=== PATIENT | male | born 1955 | race Caucasian/White ===

== ENCOUNTER 2017-04-18 05:28 | Day surgery (SDC) | payer OTHER ==
[~2017-04-18] VITALS: Ht 180.3 cm; Wt 72.1 kg
--- NOTE | ~2017-04-18 | O ---
[facility] [place] [address] OPERATIVE REPORT Name: VIKTORIA SKELTON Room #: [facility]P [facility]#: [id number] Admission: 04/18/17 Attend Phys: Anoop Avila MD, F Discharge: 04/18/17 Date of : 55 Report #: [id number] THIS REPORT FOR: //name// CC: Bethany Avila DATE OF SERVICE: 04/18/2017 SURGEON: Anoop Avila MD BAR STEWARD: Brisa Chambers NP PREOPERATIVE DIAGNOSES: 1. Chronic diarrhea (Clostridium difficile negative). 2. Stage IV sacral decubitus ulcer. 3. Dementia. 4. End-stage renal disease with hemodialysis dependence. 5. History of cardiac transplantation. 6. History of renal transplantation. POSTOPERATIVE DIAGNOSES: 1. Chronic diarrhea (Clostridium difficile negative). 2. Stage IV sacral decubitus ulcer. 3. Dementia. 4. End-stage renal disease with hemodialysis dependence. 5. History of cardiac transplantation. 6. History of renal transplantation. PROCEDURE: Diverting loop transverse colostomy. ANESTHESIA: General endotracheal anesthesia. ESTIMATED BLOOD LOSS: 5 mL. SPECIMEN: None. COMPLICATIONS: None appreciated. INDICATIONS FOR PROCEDURE: This is a 61-year-old male patient who has had difficulty with a stage IV sacral decubitus ulcer. More recently, he has also had difficulty with chronic diarrhea. His Clostridium difficile tests have returned negative. Despite this, his diarrhea is persistent and is causing contamination of his sacral decubitus ulcer. The patient presents now for diverting loop transverse colostomy to divert the fecal stream and to help optimize the healing environment. [facility] [address] [place] [address] OPERATIVE REPORT Name: SKELTONVIKTORIA Lobo Room #: DEP [facility].#: [id number] Admission: 04/18/17 Attend Phys: Anoop Avila MD, F Discharge: 04/18/17 Date of : 55 Report #: [id number] DESCRIPTION OF PROCEDURE IN DETAIL: After the benefits and risks of the procedure were explained to the patient's durable power of deputy prosecuting attorney, informed consent was obtained. The patient was identified in preoperative holding area. He has been receiving scheduled IV antibiotics. He was taken to the operating room and he was placed in the supine position. SCDs were placed on the patient's bilateral lower extremities and pneumatic compression was initiated. The patient's right abdomen was then prepped and draped in the standard sterile fashion. A sharp #10 blade scalpel was used to make a vertical incision to the right of midline (the patient's PEG tube was very close to the midline) one-third [address] way between the costal margin and xiphoid. Electrocautery was used to dissect through the subcutaneous tissue. The anterior rectus sheath fascia was then opened. The underlying rectus abdominis muscle was identified. The posterior fascia was then opened along the length of the incision. Immediately, omentum was seen. The colon was able to be easily identified. A loop of colon was delivered through the incision. Omentum was pulled out as well. The omentum was then divided with the X1 device. A section of omentum was also removed. The loop of the proximal transverse colon was then fully delivered through the incision. A small mesenteric window was created. An ostomy krystian was then passed through the mesenteric window and secured to the skin in 4 areas with interrupted 2-0 nylon sutures. The colon was then opened longitudinally along the antimesenteric border. This was secured to the tissue on either side of the colostomy krystian using interrupted 3-0 Vicryl sutures. Running 3-0 Vicryl sutures were used to create the maturation process. After fully maturing the stoma, digital palpation revealed patency of the stoma beyond the fascial level. The mucosa itself was pink and viable. A stoma appliance was placed. The patient tolerated the procedure well. He was awakened, extubated, and taken to the recovery room in stable condition with no apparent intraoperative complications. <ELECTRONICALLY SIGNED> By: Anoop Avila MD, FACS 04/19/17 2300 [id number] Anoop Avila MD, FACS /nt
--- NOTE | ~2017-04-18 | EKG ---
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 : 1955 Requested By: Anoop Avila Order Number: [id number] MD: Shane Polanco Measurements Intervals [place] Rate: 70 P: 20 UT: 172 QRS: 38 QRSD: 113 T: -25 QT: 482 QTc: 521 Interpretive Statements Sinus rhythm Abnormal R-wave progression, late transition Borderline T abnormalities, diffuse leads Prolonged QT interval No previous ECG available for comparison Electronically Signed On 04-19-2017 8:19:23 CDT by Shane Polanco [email or web address] <ELECTRONICALLY SIGNED> By: Shane Polanco MD, [facility] 04/19/17 0819 1058 1058 Shane Polanco MD, [facility] /EPI
[~2017-04-18 05:28] MED LIST: ARANESP SUBQ; ASTAGRAF XL1 MG PO; CEFTAZIDIME1 GM IVPB; CLONAZEPAM 0.50.5 M1 PO; COUMADIN 3 MG TA3 M1 PO; DAKIN'S473 M1 TOP; HEPARIN IV PUSH; HUMULIN N100 UNIT/1 SUBQ; IPRATROPIU0.2 MG/1 M INH; LANTISEPTIC OI113 GM TOP; LINEZOLID600 MG PO; MELATONIN3 MG PO; MIDODRINE HCL 55 M1 PO; MULTIVITAMINS PO; NEPRO CARB STE237 ML PO; PACERONE 200 M200 M1 PO; PREDNISONE 5 MG5 MG PO; PREVALITE PACKE1 PKT PG; PROCEL1 EACH PER TUBE; PROTONIX40 M1 PO; SILVADENE20 GM TOP; SODIUM CHLORID IV; TYLENOL325 MG PO; VITAL AF 1.2 C237 ML PER TUBE; XANAX 0.25 MG0.25 MG PO
[2017-04-18 10:19] LABS: HEMATOCRIT 27.2 % (42.0-52.0); HEMOGLOBIN 9.2 gm/dL (14.0-18.0); MCH 28.8 pg (26.0-34.0); MCHC 33.8 g/dL (28.0-37.0); MCV 85.1 fL (80.0-100.0); RBC 3.19 mil/uL (4.50-6.00); RDW 19.5 % (10.5-14.5); WBC 6.1 thou/uL (4.0-11.0)
[2017-04-18 10:28] LABS: INR 1.4; PROTIME 14.6 Seconds (9.3-11.4)
[2017-04-18 10:32] LABS: CALCIUM 9.4 mg/dL (8.5-10.1); CREATININE 3.9 mg/dL (0.7-1.3); POTASSIUM 3.9 mmol/L (3.5-5.1)
[2017-04-18 10:38] LABS: ALBUMIN 3.2 g/dL (3.4-5.0); TOTAL BILIRUBIN 0.6 mg/dL (<0.1-1.0); TOTAL PROTEIN 7.6 g/dL (6.4-8.2)
[2017-04-18 13:05] VITALS: BP 140/79
[2017-04-18 16:12] VITALS: BP 140/79
[2017-04-18 16:13] VITALS: BP 140/79
== END 2017-04-18 16:20 | disposition short-term general hospital (02) ==
LOC: OR 05:28 → TBA 05:29 → OR 12:48
PROVIDERS: Surgery
DX: K52.89 Other specified noninfective gastroenteritis and colitis (principal); L89.154 Pressure ulcer of sacral region, stage 4; F03.90 Unspecified dementia, unspecified severity, without behavioral disturbance, psychotic disturbance, mood disturbance, and anxiety; N18.6 End stage renal disease; F41.9 Anxiety disorder, unspecified; I95.89 Other hypotension; I25.5 Ischemic cardiomyopathy; Z99.2 Dependence on renal dialysis; Z94.1 Heart transplant status; Z94.0 Kidney transplant status; Z88.5 Allergy status to narcotic agent; Z88.8 Allergy status to other drugs, medicaments and biological substances; Z79.899 Other long term (current) drug therapy
CPT/HCPCS: 50010; 50093; 50101; 50386; 56524; 56525; 57092; 62110; 62900; 70005